=== PATIENT | male | born 1955 | race Caucasian/White ===

== ENCOUNTER 2016-06-12 07:25 | Day surgery (SDC) | payer OTHER ==
[~2016-06-12 07:25] MED LIST: LACTATED RINGERS 1,000 ML IV SCH
[2016-06-12 07:34] VITALS: RESP 16; TEMP 98.3
[2016-06-12] MEDS ORDERED: PROPOFOL 10 MG/ML 20 ML VIAL IV ONE (08:05)
[2016-06-12 09:12] VITALS: BP 126/88; PULSE 80
--- NOTE | 2016-06-26 12:28 | P.OP ---
Date of Procedure: 06/12/16 Preoperative Diagnosis: Screening. History of colon polyp serrated and tubular adenomas. Postoperative Diagnosis: Descending colon polyp. Diverticulosis. Procedure(s) Performed: Colonoscopy and snare polypectomy Implants: Anesthesia: MAC Surgeon: Jamar Hook Pathology: other (Descending colon polyp) Condition: stable Disposition: same day Indications for Procedure: Screening. History of colon polyps. Operative Findings: 1 descending colon polyp. 2 mild diverticulosis. Description of Procedure: With the patient in the left lateral position rectal digital examination was normal. There were no palpable masses. No prostatic masses. The video colonoscope was inserted transanally and advanced all the way to the cecum which was entered without visualized. The mucosa were thoroughly examined. Findings 1 there was a minute polyp in the descending colon that was removed with the snare cautery with good hemostasis. 2 mild diverticulosis. The patient tolerated the procedure well without any evident complication. Recommendation. High-fiber diet. Follow-up colonoscopy in about 5 years.
== END 2016-06-12 09:17 | disposition home or self-care (01) ==
LOC: ORWHC2ENDO 07:25
PROVIDERS: ATTEND Surgery
DX: Z12.11 Encounter for screening for malignant neoplasm of colon (principal); K63.5 Polyp of colon; K57.30 Diverticulosis of large intestine without perforation or abscess without bleeding; Z86.010 Personal history of colon polyps; E78.5 Hyperlipidemia, unspecified; Z79.899 Other long term (current) drug therapy
CPT/HCPCS: 88305; 45385; J2704; 45384

== ENCOUNTER → 2019-08-28 | Outpatient (CLI) | payer OTHER ==
[2019-08-28 08:38] LABS: HCT 44.3 % (39.0-53.0); HGB 14.8 gm/dL (13.0-17.5); MCH 31.1 pg (25.0-35.0); MCHC 33.4 g/dL (31.0-37.0); Mean Platelet Volume 8.3; Platelet Count 168 k/uL (150-450); RBC 4.77 m/uL (4.30-5.90); RDW 12.9 % (11.5-15.5); WBC 4.9 k/uL (3.8-10.6)
[2019-08-28 08:46] LABS: Appearance,Urine Clear (Clear); Bilirubin,Urine Negative (Negative); Blood,Urine Negative (Negative); Color,Urine Light Yellow; Glucose,Urine (UA) Negative (Negative); Ketones,Urine Negative (Negative); Leukocyte Esterase,Urine Negative (Negative); Nitrite,Urine Negative (Negative); PH, Urine 6.5 (5.0-8.0); Protein,Urine Negative (Negative); Specific Gravity,Urine 1.006 (1.001-1.035); Urobilinogen,Urine <2.0 mg/dL (<2.0)
[2019-08-28 17:21] LABS: African American GFR (CKD) 106.5 (60.0-200.0); Albumin 4.3 g/dL (3.80-4.90); Albumin/Globulin Ratio 2.05 (1.60-3.17); Anion Gap 9.7 mmol/L (4.00-12.00); BUN/Creat Ratio 18.89 Ratio (12.00-20.00); Calcium 9.5 mg/dL (8.7-10.3); Carbon Dioxide 23.3 mmol/L (21.6-31.8); Chol/HDL Ratio 3.04; Globulin 2.1 g/dL (1.6-3.3); Non-African American GFR(CKD) 91.9 (60.0-200.0); Potassium 4.2 mmol/L (3.5-5.5); Total Protein 6.4 g/dL (6.2-8.2)
[2019-08-28 20:20] LABS: Hemoglobin A1C 5.8 % (4.0-6.0)
== END | disposition home or self-care (01) ==
LOC: LABWHC1 08:12
PROVIDERS: ATTEND Internal Medicine
DX: Z00.00 Encounter for general adult medical examination without abnormal findings (principal); E78.5 Hyperlipidemia, unspecified; R73.01 Impaired fasting glucose
CPT/HCPCS: 36415; 80053; 80061; 81003; 83036; 85027

== ENCOUNTER → 2020-09-27 | Outpatient (CLI) | payer OTHER ==
--- NOTE | 2020-09-27 09:18 | XR ---
EXAM TYPE: LUMBAR SPINE X RAY SERIES COMPARISON: NONE HISTORY: Pain TECHNIQUE: 4 views are submitted. FINDINGS: Alignment is anatomic. The pedicles are intact. The transverse processes are intact. There is diff use osteopenia. Grade 1 anterolisthesis L4 and L5. Moderate degenerative disc disease L4-L5 and L5-S1 with severe facet arthropathy. IMPRESSION: 1. Moderate degenerative disc disease lower lumbar spine with severe facet arthropathy. Grade 1 anter olisthesis L4 on L5.
--- NOTE | 2020-09-27 09:19 | XR ---
EXAMINATION TYPE: XR thoracic spine complete DATE OF EXAM: 09/27/2020 COMPARISON: NONE HISTORY: Pain TECHNIQUE: 3 views submitted FINDINGS: Alignment is anatomic. There is no compression deformities. Moderate to severe multilevel hypertroph ic and degenerative disc disease. Curvature of the spine. IMPRESSION: 1. Multilevel moderate to severe degenerative disc disease.
== END | disposition home or self-care (01) ==
LOC: RADXRMAIN 08:44
PROVIDERS: ATTEND Internal Medicine
DX: M51.34 Other intervertebral disc degeneration, thoracic region (principal); M51.36 Other intervertebral disc degeneration, lumbar region
CPT/HCPCS: 72072; 72100

== ENCOUNTER 2023-08-07 08:59 | Day surgery (SDC) | payer MEDICARE, OTHER ==
[2023-08-02 14:10] VITALS: BMI 28.0
[2023-08-07] MEDS: IV FLUID CONTINUATION 1,000 ML IV ONE (09:34)
[2023-08-07 09:40] VITALS: RESP 16; TEMP 97.8
[2023-08-07] MEDS: LACTATED RINGERS 1,000 ML IV SCH (09:50)
[2023-08-07] MEDS ORDERED: LIDOCAINE 1% INJ 10MG/ML (20 ML MDV) ONE (10:45)
[2023-08-07] MEDS ORDERED: PROPOFOL 10 MG/ML 20 ML VIAL IV ONE (10:45)
--- NOTE | 2023-08-07 11:09 | P.PCN ---
Date of Procedure: 08/07/23 Procedure(s) Performed: BRIEF HISTORY: Patient is a 67-year-old pleasant white male scheduled for an elective colonoscopy as a part of screening for colon cancer. PROCEDURE PERFORMED: Colonoscopy with biopsy and snare polypectomy. PREOPERATIVE DIAGNOSIS: Screening for colon cancer. IV sedation per Anesthesia. PROCEDURE: After informed consent was obtained, the patient, was brought into the endoscopy unit. IV sedation was administered by Anesthesia under continuous monitoring. Digital rectal examination was normal. Initially the Olympus CF-160 flexible video colonoscope was then inserted in the rectum, gradually advanced into the cecum without any difficulty. Careful examination was performed as the scope was gradually being withdrawn. Ileocecal valve and the appendiceal orifice were visualized and appeared normal. Prep was excellent. Mucosa of the cecum, appeared normal. The ascending colon there was a 2 mm polyp that was removed by cold biopsy. Rest of the ascending colon, transverse colon, descending colon, appeared normal. The proximal sigmoid colon at 45 cm from the anal verge there was a 1.5 cm polyp that was removed by snare polypectomy and complete polypectomy accomplished. Scattered left-sided diverticulosis seen. Rest of the sigmoid colon, and rectum appeared normal. Retroflexion was performed in the rectum and no lesions were seen. The patient tolerated the procedure well. IMPRESSION: 2 millimeter ascending colon polyp status post cold biopsy 1.5 cm proximal sigmoid colon polyp status post polypectomy Scattered sigmoid diverticulosis RECOMMENDATIONS: Findings of this examination were discussed with the patient as well as his family. He was advised to follow-up with the biopsy results. If the biopsy reveals adenoma he can have repeat colonoscopy in 3 years..
[2023-08-07 11:42] VITALS: BP 122/71; PULSE 55
== END 2023-08-07 11:43 | disposition home or self-care (01) ==
LOC: ORWHC2ENDO 08:59
PROVIDERS: ATTEND Internal Medicine Gastroenterology
DX: Z12.11 Encounter for screening for malignant neoplasm of colon (principal); D12.2 Benign neoplasm of ascending colon; D12.5 Benign neoplasm of sigmoid colon; K57.30 Diverticulosis of large intestine without perforation or abscess without bleeding; E78.5 Hyperlipidemia, unspecified; N40.0 Benign prostatic hyperplasia without lower urinary tract symptoms; Z79.899 Other long term (current) drug therapy
CPT/HCPCS: 88305; 45380; 45385; J2001; J2704